=== PATIENT | male | born 1960 | race Caucasian/White ===

== ENCOUNTER → 2019-02-07 | Outpatient (CLI) | payer OTHER | LOC: RAD 07:25 | DX: Z49.01 Encounter for fitting and adjustment of extracorporeal dialysis catheter (principal); N18.6 End stage renal disease ==

== ENCOUNTER → 2019-04-17 | Outpatient (CLI) | payer OTHER | LOC: RAD 13:00 | DX: R39.12 Poor urinary stream (principal); Z96.0 Presence of urogenital implants ==